=== PATIENT | male | born 1975 | race Caucasian/White ===

== ENCOUNTER 2021-05-04 06:53 | Emergency (ER) | payer SELFPAY ==
[2021-05-04] MEDS ORDERED: Sodium Chloride 0.9% 10 ML Syringe FLUSH PRN (07:30)
[2021-05-04] MEDS ORDERED: Acetaminophen 500 MG Tab PO ONE (07:30)
[2021-05-04] MEDS ORDERED: Sodium Chloride 0.9% 2.5 ML Syringe FLUSH PRN (07:30)
--- NOTE | 2021-05-04 07:43 | EDM.PDOC ---
ED HPI GENERAL MEDICAL PROBLEM - General Chief Complaint: General Stated Complaint: COVID SYMPTOMS Time Seen by Provider: 05/04/21 07:12 - History of Present Illness INITIAL COMMENTS - FREE TEXT/NARRATIVE: 45-year-old male presents with a week and a half cough, fevers, body aches and fatigue and lack of appetite. Patient is not vaccinated against Covid. No known Covid contacts. Patient does have some shortness of breath. Patient states maybe a little bit of chest pain initially but this has really since resolved. No history of blood clots. Patient denies any vomiting or diarrhea, pain with urination, abdominal pain. Moderate symptoms. No exacerbating or alleviating factors Chest w Coughing Pain Score (Numeric/FACES): 3 - Related Data Allergies Allergy/AdvReac Type Severity Reaction Status Date / Time Penicillins Allergy Rash Verified 05/04/21 07:12 Home Meds: Home Meds Enalapril [Vasotec] 20 mg PO DAILY 05/04/21 [History] Esomeprazole Magnesium [Nexium] 40 mg PO DAILY 05/04/21 [History] Verapamil HCl [Verapamil ER] 120 mg PO DAILY 05/04/21 [History] Past Medical History HEENT History: Reports: None Cardiovascular History: Reports: Hypertension Respiratory History: Reports: None Gastrointestinal History: Reports: None Genitourinary History: Reports: None Musculoskeletal History: Reports: None Neurological History: Reports: None Psychiatric History: Reports: None Endocrine/Metabolic History: Reports: None Hematologic History: Reports: None Immunologic History: Reports: None Oncologic (Cancer) History: Reports: None Dermatologic History: Reports: None - Infectious Disease History Infectious Disease History: Reports: Chicken Pox - Past Surgical History Head Surgeries/Procedures: Reports: None Cardiovascular Surgical History: Reports: None Musculoskeletal Surgical History: Reports: Other (See Below) Other Musculoskeletal Surgeries/Procedures:: disc replaced in neck Social & Family History - Family History Family Medical History: No Pertinent Family History - Tobacco Use Tobacco Use Status *Q: Former Tobacco User Used Tobacco, but Quit: Yes Month/Year Tobacco Last Used: 20 years ago - Caffeine Use Caffeine Use: Reports: Coffee - Recreational Drug Use Recreational Drug Use: No ED ROS GENERAL - Review of Systems Review Of Systems: Comprehensive ROS is negative, except as noted in HPI. Constitutional: Reports: Fever, Chills, Malaise, Fatigue Respiratory: Reports: Shortness of Breath, Cough Cardiovascular: Reports: Chest Pain Endocrine: Reports: Fatigue GI/Abdominal: Denies: Abdominal Pain : Denies: Dysuria Musculoskeletal: Reports: Joint Pain Skin: Denies: Rash Neurological: Reports: No Symptoms ED EXAM, GENERAL - Physical Exam Exam: See Below Free Text/Narrative:: CONSTITUTIONAL: well appearing in no acute distress SKIN: Warm, dry, and intact without rash HENT: Normocephalic, atraumatic, PULMONARY: Bilateral slight rales. Mild tachypnea CARDIOVASCULAR: Tachycardia, No murmur, rubs, or gallops GASTROINTESTINAL: soft, nondistended, nontender NEUROLOGIC: normal speech, II-XII intact. light touch/5/5 power equal and symmetric in upper and lower extremities without deficit MUSCULOSKELETAL: no gross deformities, atraumatic PSYCHIATRIC: normal mood and affect #1 Interpretation Time: 07:56 EKG Interpretation Comments: 122, sinus tachycardia, nonspecific ST/T finding Course - Vital Signs Text/Narrative:: Differential diagnosis: Covid, bacterial pneumonia, dehydration, ESME, PE, other Patient presents as outlined above. Patient is positive for Covid pneumonia. Patient's oxygen levels about 95% on room air. The patient is volume depleted. He is orthostatic and with mild ESME. I did give 1 L fluid in 500 cc increments. Patient still orthostatic to 115 when he sits up for 4 to 5 minutes in duration when I was talking to him. Continue dehydration with orthostasis and ESME in the setting of Covid pneumonia the patient was advised to stay in the hospital. Pt alert and oriented. Pt understandings risks of significant morbidity and/or mortality. Pt is able to discuss illustrating understanding. Pt has capacity to make own decisions and is signing out against medical advice. In addition I also spoke to his and described the situation and then have them talk afterwards and hope of convincing him to stay in the hospital but he is currently not able to be convinced. Last Recorded V/S: Last Vital Signs Temp 37.4 C 05/04/21 08:22 Pulse 100 05/04/21 10:33 Resp 22 H 05/04/21 07:31 BP 135/85 05/04/21 10:08 Pulse Ox 95 05/04/21 10:08 Orthostatic Blood Pressure [ 98/67 Standing] Orthostatic Blood Pressure [ 107/80 Sitting] Orthostatic Blood Pressure [ 121/84 Supine] - Orders/Labs/Meds Orders: Active Orders 24 hr Category Date Time Status Cardiac Monitoring [RC] . DIRECTED Care 05/04/21 07:30 Active Orthostatic Vital Signs [RC] ASDIRECTED Care 05/04/21 07:30 Active CULTURE BLOOD [BC] Stat Lab 05/04/21 07:30 Received CULTURE BLOOD [BC] Stat Lab 05/04/21 08:00 Received Sodium Chloride 0.9% [Saline Flush] Med 05/04/21 07:30 Active 10 ml FLUSH ASDIRECTED PRN Sodium Chloride 0.9% [Saline Flush] Med 05/04/21 07:30 Active 2.5 ml FLUSH ASDIRECTED PRN Blood Culture x2 Reflex Set [OM.PC] Stat Oth 05/04/21 07:31 Ordered Blood Culture x2 Reflex Set [OM.PC] Stat Oth 05/04/21 07:40 Ordered Saline Lock Insert [OM.PC] Stat Ot 05/04/21 07:30 Ordered Medication Orders Sodium Chloride (Sodium Chloride 0.9% 10 Ml Syringe) 10 ml FLUSH ASDIRECTED PRN PRN Reason: Keep Vein Open Last Admin: 05/04/21 07:53 Dose: 10 ml Documented by: JARED Sodium Chloride (Sodium Chloride 0.9% 2.5 Ml Syringe) 2.5 ml FLUSH ASDIRECTED PRN PRN Reason: Keep Vein Open Last Admin: 05/04/21 07:53 Dose: 2.5 ml Documented by: JARED Labs: Laboratory Tests 05/04/21 05/04/21 05/04/21 Range/Units 07:30 07:30 07:30 WBC 4.65 (4.0-11.0) K/uL RBC 6.39 H (4.50-5.90) M/uL Hgb 18.9 H (13.0-17.0) g/dL Hct 54.7 H (38.0-50.0) % MCV 85.6 (80.0-98.0) fL MCH 29.6 (27.0-32.0) pg MCHC 34.6 (31.0-37.0) g/dL RDW Std Deviation 42.7 (28.0-62.0) fl RDW Coeff of Sadaf 14 (11.0-15.0) % Plt Count 155 (150-400) K/uL MPV 10.30 (7.40-12.00) fL Neut % (Auto) 66.4 (48.0-80.0) % Lymph % (Auto) 20.9 (16.0-40.0) % Mellette % (Auto) 12.5 (0.0-15.0) % Eos % (Auto) 0.0 (0.0-7.0) % Baso % (Auto) 0.2 (0.0-1.5) % Neut # (Auto) 3.1 (1.4-5.7) K/uL Lymph # (Auto) 1.0 (0.6-2.4) K/uL Mellette # (Auto) 0.6 (0.0-0.8) K/uL Eos # (Auto) 0.0 (0.0-0.7) K/uL Baso # (Auto) 0.0 (0.0-0.1) K/uL Nucleated RBC % 0.0 /100WBC Nucleated RBCs # 0 K/uL APTT 30.6 (18.6-31.3) SEC D-Dimer, Quantitative 0.42 (0.0-0.50) mg/L FEU Sodium 132 L (136-148) mmol/L Potassium 4.5 (3.5-5.1) mmol/L Chloride 96 L (98-107) mmol/L Carbon Dioxide 28.5 (21.0-32.0) mmol/L BUN 15 (7.0-18.0) mg/dL Creatinine 1.4 H (0.8-1.3) mg/dL Est Cr Clr Drug Dosing 73.90 mL/min Estimated GFR (MDRD) 55.1 ml/min Glucose 120 H (74-106) mg/dL Lactic Acid (0.4-2.0) mmol/L Calcium 8.5 (8.5-10.1) mg/dL Ferritin (26-388) ng/mL Total Bilirubin 0.6 (0.2-1.0) mg/dL AST 70 H (15-37) IU/L ALT 54 (14-63) IU/L Alkaline Phosphatase 68 (46-116) U/L Troponin I < 0.050 (0.000-0.056) ng/mL B-Natriuretic Peptide (<100) PG/ML Total Protein 7.4 (6.4-8.2) g/dL Albumin 3.6 (3.4-5.0) g/dL Globulin 3.8 (2.6-4.0) g/dL Albumin/Globulin Ratio 0.9 (0.9-1.6) Urine Color Urine Appearance Urine pH Ur Specific [place]y Urine Protein Urine Glucose (UA) Urine Ketones Urine Occult Blood Urine Nitrite Urine Bilirubin Urine Ictotest Urine Urobilinogen Ur Leukocyte Esterase U Hyaline Cast (Auto) Urine RBC Urine WBC Ur Epithelial Cells Ur Squamous Epith Cells Ur Renal Epithelial Cell Calcium Oxalate Crystal Uric Acid Crystals Triple Phos Crystals Other Crystals Amorphous Sediment Urine Bacteria Fine Granular Casts Coarse Granular Casts Waxy Casts RBC Casts WBC Casts Urine Mucus Urine Other Urine Trichomonas Urine Yeast Urine Sperm Ur Oval Fat Bodies Urinalysis Comment SARS-CoV-2 RNA (JOSIAH) (NEGATIVE) 05/04/21 05/04/21 05/04/21 Range/Units 07:30 07:30 07:30 WBC (4.0-11.0) K/uL RBC (4.50-5.90) M/uL Hgb (13.0-17.0) g/dL Hct (38.0-50.0) % MCV (80.0-98.0) fL MCH (27.0-32.0) pg MCHC (31.0-37.0) g/dL RDW Std Deviation (28.0-62.0) fl RDW Coeff of Asdaf (11.0-15.0) % Plt Count (150-400) K/uL MPV (7.40-12.00) fL Neut % (Auto) (48.0-80.0) % Lymph % (Auto) (16.0-40.0) % Mellette % (Auto) (0.0-15.0) % Eos % (Auto) (0.0-7.0) % Baso % (Auto) (0.0-1.5) % Neut # (Auto) (1.4-5.7) K/uL Lymph # (Auto) (0.6-2.4) K/uL Mellette # (Auto) (0.0-0.8) K/uL Eos # (Auto) (0.0-0.7) K/uL Baso # (Auto) (0.0-0.1) K/uL Nucleated RBC % /100WBC Nucleated RBCs # K/uL APTT (18.6-31.3) SEC D-Dimer, Quantitative (0.0-0.50) mg/L FEU Sodium (136-148) mmol/L Potassium (3.5-5.1) mmol/L Chloride (98-107) mmol/L Carbon Dioxide (21.0-32.0) mmol/L BUN (7.0-18.0) mg/dL Creatinine (0.8-1.3) mg/dL Est Cr Clr Drug Dosing mL/min Estimated GFR (MDRD) ml/min Glucose (74-106) mg/dL Lactic Acid 1.2 (0.4-2.0) mmol/L Calcium (8.5-10.1) mg/dL Ferritin 438 H (26-388) ng/mL Total Bilirubin (0.2-1.0) mg/dL AST (15-37) IU/L ALT (14-63) IU/L Alkaline Phosphatase (46-116) U/L Troponin I (0.000-0.056) ng/mL B-Natriuretic Peptide < 2 (<100) PG/ML Total Protein (6.4-8.2) g/dL Albumin (3.4-5.0) g/dL Globulin (2.6-4.0) g/dL Albumin/Globulin Ratio (0.9-1.6) Urine Color Urine Appearance Urine pH Ur Specific [place] Urine Protein Urine Glucose (UA) Urine Ketones Urine Occult Blood Urine Nitrite Urine Bilirubin Urine Ictotest Urine Urobilinogen Ur Leukocyte Esterase U Hyaline Cast (Auto) Urine RBC Urine WBC Ur Epithelial Cells Ur Squamous Epith Cells Ur Renal Epithelial Cell Calcium Oxalate Crystal Uric Acid Crystals Triple Phos Crystals Other Crystals Amorphous Sediment Urine Bacteria Fine Granular Casts Coarse Granular Casts Waxy Casts RBC Casts WBC Casts Urine Mucus Urine Other Urine Trichomonas Urine Yeast Urine Sperm Ur Oval Fat Bodies Urinalysis Comment SARS-CoV-2 RNA (JOSIAH) (NEGATIVE) 05/04/21 05/04/21 Range/Units 07:50 09:30 WBC (4.0-11.0) K/uL RBC (4.50-5.90) M/uL Hgb (13.0-17.0) g/dL Hct (38.0-50.0) % MCV (80.0-98.0) fL MCH (27.0-32.0) pg MCHC (31.0-37.0) g/dL RDW Std Deviation (28.0-62.0) fl RDW Coeff of Sadaf (11.0-15.0) % Plt Count (150-400) K/uL MPV (7.40-12.00) fL Neut % (Auto) (48.0-80.0) % Lymph % (Auto) (16.0-40.0) % Mellette % (Auto) (0.0-15.0) % Eos % (Auto) (0.0-7.0) % Baso % (Auto) (0.0-1.5) % Neut # (Auto) (1.4-5.7) K/uL Lymph # (Auto) (0.6-2.4) K/uL Mellette # (Auto) (0.0-0.8) K/uL Eos # (Auto) (0.0-0.7) K/uL Baso # (Auto) (0.0-0.1) K/uL Nucleated RBC % /100WBC Nucleated RBCs # K/uL APTT (18.6-31.3) SEC D-Dimer, Quantitative (0.0-0.50) mg/L FEU Sodium (136-148) mmol/L Potassium (3.5-5.1) mmol/L Chloride (98-107) mmol/L Carbon Dioxide (21.0-32.0) mmol/L BUN (7.0-18.0) mg/dL Creatinine (0.8-1.3) mg/dL Est Cr Clr Drug Dosing mL/min Estimated GFR (MDRD) ml/min Glucose (74-106) mg/dL Lactic Acid (0.4-2.0) mmol/L Calcium (8.5-10.1) mg/dL Ferritin (26-388) ng/mL Total Bilirubin (0.2-1.0) mg/dL AST (15-37) IU/L ALT (14-63) IU/L Alkaline Phosphatase (46-116) U/L Troponin I (0.000-0.056) ng/mL B-Natriuretic Peptide (<100) PG/ML Total Protein (6.4-8.2) g/dL Albumin (3.4-5.0) g/dL Globulin (2.6-4.0) g/dL Albumin/Globulin Ratio (0.9-1.6) Urine Color Cancelled Urine Appearance Cancelled Urine pH Cancelled Ur Specific [place] Cancelled Urine Protein Cancelled Urine Glucose (UA) Cancelled Urine Ketones Cancelled Urine Occult Blood Cancelled Urine Nitrite Cancelled Urine Bilirubin Cancelled Urine Ictotest Cancelled Urine Urobilinogen Cancelled Ur Leukocyte Esterase Cancelled U Hyaline Cast (Auto) Cancelled Urine RBC Cancelled Urine WBC Cancelled Ur Epithelial Cells Cancelled Ur Squamous Epith Cells Cancelled Ur Renal Epithelial Cell Cancelled Calcium Oxalate Crystal Cancelled Uric Acid Crystals Cancelled Triple Phos Crystals Cancelled Other Crystals Cancelled Amorphous Sediment Cancelled Urine Bacteria Cancelled Fine Granular Casts Cancelled Coarse Granular Casts Cancelled Waxy Casts Cancelled RBC Casts Cancelled WBC Casts Cancelled Urine Mucus Cancelled Urine Other Cancelled Urine Trichomonas Cancelled Urine Yeast Cancelled Urine Sperm Cancelled Ur Oval Fat Bodies Cancelled Urinalysis Comment Cancelled SARS-CoV-2 RNA (JOSIAH) POSITIVE H (NEGATIVE) Meds: Medications Generic Name Dose Route Start Last Admin Trade Name Attila PRN Reason Stop Dose Admin Sodium Chloride 10 ml 05/04/21 07:30 05/04/21 07:53 Sodium Chloride 0.9% 10 Ml Syringe FLUSH 10 ml ASDIRECTED PRN Administration Keep Vein Open Sodium Chloride 2.5 ml 05/04/21 07:30 05/04/21 07:53 Sodium Chloride 0.9% 2.5 Ml Syringe FLUSH 2.5 ml ASDIRECTED PRN Administration Keep Vein Open Discontinued Medications Generic Name Dose Route Start Last Admin Trade Name Freq PRN Reason Stop Dose Admin Acetaminophen 1,000 mg 05/04/21 07:30 05/04/21 07:52 Acetaminophen 500 Mg Tab PO 05/04/21 07:31 1,000 mg ONETIME ONE Administration Sodium Chloride 500 mls @ 999 mls/hr 05/04/21 08:30 05/04/21 08:40 Normal Saline IV 05/04/21 09:00 999 mls/hr .BOLUS ONE Administration Sodium Chloride 500 mls @ 999 mls/hr 05/04/21 09:52 05/04/21 09:54 Normal Saline IV 05/04/21 10:22 999 mls/hr .BOLUS ONE Administration Departure - Departure Time of Disposition: 11:13 Disposition: Against Medical Advice 07 Condition: Good, Fair Clinical Impression: Lab test positive for detection of COVID-19 virus, Viral pneumonia, Dehydration, ESME (acute kidney injury) - Discharge Information Instructions: Acute Kidney Injury, Adult, Dehydration, Adult, [id number], COVID-19 Referrals: PCP,None [Primary Care Provider] - Forms: ED Department Discharge Additional Instructions: Please return for any increasing shortness of breath, lightheadedness, any change or worsening condition or if you change your mind and would like to be admitted to the hospital. Sepsis Event Note (ED) - Evaluation Sepsis Screening Result: No Definite Risk - Focused Exam Vital Signs: Vital Signs Temp Temp Pulse Resp BP Pulse Ox 05/04/21 10:33 100 05/04/21 10:08 101 H 135/85 95 05/04/21 09:38 114 H 122/82 93 L 05/04/21 09:05 107 H 123/75 95 05/04/21 08:22 37.4 C 05/04/21 07:52 37.7 C 05/04/21 07:31 37.7 C 125 H 22 H 122/77 95 05/04/21 07:19 37.7 C 05/04/21 07:14 37.7 C 137 H 22 H 121/82 94 L - My Orders Last 24 Hours: My Active Orders 05/04/21 07:30 Cardiac Monitoring [RC] . DIRECTED Orthostatic Vital Signs [RC] ASDIRECTED CULTURE BLOOD [BC] Stat Sodium Chloride 0.9% [Saline Flush] 10 ml FLUSH ASDIRECTED PRN Sodium Chloride 0.9% [Saline Flush] 2.5 ml FLUSH ASDIRECTED PRN Saline Lock Insert [OM.PC] Stat 05/04/21 07:31 Blood Culture x2 Reflex Set [OM.PC] Stat 05/04/21 07:40 Blood Culture x2 Reflex Set [OM.PC] Stat 05/04/21 08:00 CULTURE BLOOD [BC] Stat - Assessment/Plan Last 24 Hours: My Active Orders 05/04/21 07:30 Cardiac Monitoring [RC] . DIRECTED Orthostatic Vital Signs [RC] ASDIRECTED CULTURE BLOOD [BC] Stat Sodium Chloride 0.9% [Saline Flush] 10 ml FLUSH ASDIRECTED PRN Sodium Chloride 0.9% [Saline Flush] 2.5 ml FLUSH ASDIRECTED PRN Saline Lock Insert [OM.PC] Stat 05/04/21 07:31 Blood Culture x2 Reflex Set [OM.PC] Stat 05/04/21 07:40 Blood Culture x2 Reflex Set [OM.PC] Stat 05/04/21 08:00 CULTURE BLOOD [BC] Stat
--- NOTE | 2021-05-04 08:21 | CR ---
HISTORY: Chest pain and cough. COMPARISON: None. TECHNIQUE: Chest one-view. FINDINGS: AP portable upright chest radiograph was obtained. Peripherally oriented pulmonary opacities are present bilaterally. This is suspicious for viral pneumonia. The heart size and pulmonary vasculature are normal. There is no pneumothorax. The central airway is normal. IMPRESSION: 1. Peripherally oriented pulmonary opacities, which may indicate viral pneumonia. 2. Suggest correlation with RT-PCR. Dictated by Cr Sotelo MD @ 05/04/2021 8:19:[address] Cr Sotelo @ May 04 2021 8:19AM
[2021-05-04 08:23] LABS: BLOOD UREA NITROGEN,BUN 15 mg/dL (7.0-18.0); CARBON DIOXIDE,CO2 28.5 mmol/L (21.0-32.0); CHLORIDE,CL 96 mmol/L (98-107); GLUCOSE RANDOM 120 mg/dL (74-106); POTASSIUM,K 4.5 mmol/L (3.5-5.1); SODIUM,NA 132 mmol/L (136-148)
[2021-05-04] MEDS ORDERED: Sodium Chloride 0.9% 500 ML IV ONE ×2 (08:30→09:52)
== END 2021-05-04 11:35 | disposition left against medical advice (07) ==
LOC: MW.ED 06:53
DX: U07.1 COVID-19 (principal); J12.82 Pneumonia due to coronavirus disease 2019; E86.0 Dehydration; N17.9 Acute kidney failure, unspecified; I10 Essential (primary) hypertension; Z88.0 Allergy status to penicillin; Z87.891 Personal history of nicotine dependence; Z79.899 Other long term (current) drug therapy
CPT/HCPCS: 71045; 80053; 82728; 83605; 83880; 84484; 85025; 85379; 85730; 87040; 87635; 93005; 99285; A9270; J7030; 93010; 99284; U0002

== ENCOUNTER 2021-05-05 12:01 | Emergency (ER) | payer SELFPAY ==
[2021-05-05 13:34] LABS: CARBON DIOXIDE,CO2 26.5 mmol/L (21.0-32.0); POTASSIUM,K 4.6 mmol/L (3.5-5.1)
--- NOTE | 2021-05-05 14:10 | EDM.PDOC ---
ED HPI GENERAL MEDICAL PROBLEM - General Chief Complaint: General Stated Complaint: RECEIVED CALL FROM TO RECEIVE ANTIBIOTICS Time Seen by Provider: 05/05/21 12:09 - History of Present Illness INITIAL COMMENTS - FREE TEXT/NARRATIVE: Patient presents to the emergency department for monoclonal antibody infusion for Covid. Previously I was informed that we did not have this therapy. This morning, I was informed we did. Mr. Flores, left AMA yesterday and he is right near 10 days it when his symptoms started. The patient did have some ESME with significant dehydration and I wanted to bring him into the hospital in the setting of his Covid infection but he signed out AMA after thorough discussion with himself multiple times and his . Patient still does not want to stay in the hospital although he is amendable to receiving the monoclonal antibody transfusion. He states he he feels better but still has symptoms of shortness of breath cough and body aches. No exacerbating relieving factors - Related Data Allergies Allergy/AdvReac Type Severity Reaction Status Date / Time Penicillins Allergy Rash Verified 05/04/21 07:12 Home Meds: Home Meds Enalapril [Vasotec] 20 mg PO DAILY 05/04/21 [History] Esomeprazole Magnesium [Nexium] 40 mg PO DAILY 05/04/21 [History] Verapamil HCl [Verapamil ER] 120 mg PO DAILY 05/04/21 [History] Past Medical History HEENT History: Reports: None Cardiovascular History: Reports: Hypertension Respiratory History: Reports: None Gastrointestinal History: Reports: None Genitourinary History: Reports: None Musculoskeletal History: Reports: None Neurological History: Reports: None Psychiatric History: Reports: None Endocrine/Metabolic History: Reports: None Hematologic History: Reports: None Immunologic History: Reports: None Oncologic (Cancer) History: Reports: None Dermatologic History: Reports: None - Infectious Disease History Infectious Disease History: Reports: Chicken Pox, Novel Coronavirus - Past Surgical History Head Surgeries/Procedures: Reports: None Cardiovascular Surgical History: Reports: None Musculoskeletal Surgical History: Reports: Other (See Below) Other Musculoskeletal Surgeries/Procedures:: disc replaced in neck Social & Family History - Family History Family Medical History: No Pertinent Family History - Tobacco Use Tobacco Use Status *Q: Never Tobacco User - Caffeine Use Caffeine Use: Reports: Coffee, Soda, Tea - Recreational Drug Use Recreational Drug Use: No ED ROS GENERAL - Review of Systems Review Of Systems: See Below Constitutional: Reports: Chills Respiratory: Reports: Shortness of Breath, Cough Cardiovascular: Denies: Chest Pain GI/Abdominal: Denies: Abdominal Pain Musculoskeletal: Reports: Other (body aches) Skin: Denies: Rash ED EXAM, GENERAL - Physical Exam Exam: See Below Free Text/Narrative:: CONSTITUTIONAL: well appearing in no acute distress SKIN: dry, and intact without rash HENT: Normocephalic, atraumatic, NECK: normal range of motion PULMONARY: normal chest rise and fall, no respiratory distress or stridor NEUROLOGIC: normal speech, moves all extremities, grossly non-focal MUSCULOSKELETAL: no gross deformities, atraumatic PSYCHIATRIC: normal mood and affect Course - Vital Signs Text/Narrative:: Covid pneumonia, ESME, dehydration, bacterial infection, other Patient presents as outlined above. Patient given monoclonal antibody infusion. Patient's ESME is improved. Supportive treatment with return precautions and pcp followup. Last Recorded V/S: Last Vital Signs Temp 36.7 C 05/05/21 13:28 Pulse 115 H 05/05/21 13:28 Resp 16 05/05/21 13:28 BP 123/79 05/05/21 13:28 Pulse Ox 93 L 05/05/21 13:28 - Orders/Labs/Meds Orders: Active Orders 24 hr Category Date Time Status Casirivimab/Imdevimab [Regen-Cov 600-600 mg/10Ml (Eua)] Med 05/05/21 00:00 Active 10 ml Sodium Chloride 0.9% [Normal Saline] 100 ml IV ONETIME Medication Orders CASIRIVIMAB/IMDEVIMAB 10 ml/ (Sodium Chloride) 110 mls @ 220 mls/hr IV ONETIME Stop: 05/05/21 23:59 Labs: Laboratory Tests 05/05/21 05/05/21 05/05/21 Range/Units 13:10 13:10 13:10 WBC 6.40 (4.0-11.0) K/uL RBC 5.78 (4.50-5.90) M/uL Hgb 17.5 H (13.0-17.0) g/dL Hct 50.2 H (38.0-50.0) % MCV 86.9 (80.0-98.0) fL MCH 30.3 (27.0-32.0) pg MCHC 34.9 (31.0-37.0) g/dL RDW Std Deviation 43.3 (28.0-62.0) fl RDW Coeff of Sadaf 14 (11.0-15.0) % Plt Count 199 (150-400) K/uL MPV 10.10 (7.40-12.00) fL Add Manual Diff YES Neutrophils % (Manual) 68 (48.0-80.0) % Band Neutrophils % 5 % Lymphocytes % (Manual) 14 L (16.0-40.0) % Monocytes % (Manual) 13 (0.0-15.0) % Nucleated RBC % 0.0 /100WBC Absolute Seg Neuts 4.4 (1.4-5.7) Band Neutrophils # 0.3 Lymphocytes # (Manual) 0.9 (0.6-2.4) Monocytes # (Manual) 0.8 (0.0-0.8) Nucleated RBCs # 0 K/uL Sodium 135 L (136-148) mmol/L Potassium 4.6 (3.5-5.1) mmol/L Chloride 98 (98-107) mmol/L Carbon Dioxide 26.5 (21.0-32.0) mmol/L BUN 12 (7.0-18.0) mg/dL Creatinine 1.3 (0.8-1.3) mg/dL Est Cr Clr Drug Dosing 78.76 mL/min Estimated GFR (MDRD) 59.7 ml/min Glucose 102 (74-106) mg/dL Calcium 8.2 L (8.5-10.1) mg/dL Ferritin 536 H (26-388) ng/mL Total Bilirubin 0.8 (0.2-1.0) mg/dL AST 58 H (15-37) IU/L ALT 43 (14-63) IU/L Alkaline Phosphatase 66 (46-116) U/L Total Protein 6.9 (6.4-8.2) g/dL Albumin 3.1 L (3.4-5.0) g/dL Globulin 3.8 (2.6-4.0) g/dL Albumin/Globulin Ratio 0.8 L (0.9-1.6) Meds: Medications Generic Name Dose Route Start Last Admin Trade Name Freq PRN Reason Stop Dose Admin CASIRIVIMAB/IMDEVIMAB 10 ml/ 110 mls @ 220 mls/hr 05/05/21 00:00 Sodium Chloride IV 05/05/21 23:59 ONETIME Discontinued Medications Generic Name Dose Route Start Last Admin Trade Name Attila PRN Reason Stop Dose Admin CASIRIVIMAB/IMDEVIMAB 10 ml/ 60 mls @ 120 mls/hr 05/05/21 00:00 Sodium Chloride IV 05/05/21 23:59 ONETIME Departure - Departure Time of Disposition: 14:09 Disposition: Home, Self-Care 01 Condition: Fair Clinical Impression: Pneumonia due to COVID-19 virus - Discharge Information Instructions: COVID-19 Referrals: PCP,None [Primary Care Provider] - Additional Instructions: Return for shortness of breath, change or worsening condition or lack of i mprovement. The following information is given to patients seen in the emergency department who are being discharged to home. This information is to outline your options for follow-up care. We provide all patients seen in our emergency department with a follow-up referral. The need for follow-up, as well as the timing and circumstances, are variable depending upon the specifics of your emergency department visit. If you don't have a primary care physician on staff, we will provide you with a referral. We always advise you to contact your personal physician following an emergency department visit to inform them of the circumstance of the visit and for follow-up with them and/or the need for any referrals to a consulting specialist. The emergency department will also refer you to a specialist when appropriate. This referral assures that you have the opportunity for follow-up care with a sp ecialist. All of these measure are taken in an effort to provide you with optimal care, which includes your follow-up. Primary care clinics in the area: [facility] [address] [place] [id number] [facility] [address] [place] [address] Under all circumstances we always encourage you to contact your private physician who remains a resource for coordinating your care. When calling for follow-up care, please make the office aware that this follow-up is from your recent emergency room visit. If for any reason you are refused follow-up, please contact the [facility] Emergency Department at and asked to speak to the emergency department charge nurse. Sepsis Event Note (ED) - Evaluation Sepsis Screening Result: Possible Sepsis Risk - Focused Exam Vital Signs: Vital Signs Temp Pulse Resp BP Pulse Ox 05/05/21 13:28 36.7 C 115 H 16 123/79 93 L 05/05/21 12:41 36.7 C 125 H 24 H 136/79 95 - My Orders Last 24 Hours: My Active Orders 05/05/21 00:00 Casirivimab/Imdevimab [Regen-Cov 600-600 mg/10Ml (Eua)] 10 ml Sodium Chloride 0.9% [Normal Saline] 100 ml IV ONETIME - Assessment/Plan Last 24 Hours: My Active Orders 05/05/21 00:00 Casirivimab/Imdevimab [Regen-Cov 600-600 mg/10Ml (Eua)] 10 ml Sodium Chloride 0.9% [Normal Saline] 100 ml IV ONETIME
== END 2021-05-05 14:38 | disposition home or self-care (01) ==
LOC: MW.ED 12:01
DX: U07.1 COVID-19 (principal); J12.82 Pneumonia due to coronavirus disease 2019; I10 Essential (primary) hypertension; Z88.0 Allergy status to penicillin; Z79.899 Other long term (current) drug therapy
CPT/HCPCS: 36415; 80053; 82728; 85025; 99284; M0243; Q0243